=== PATIENT | male | born 1995 | race Hispanic/Latino ===

== ENCOUNTER 2019-03-22 11:22 | Day surgery (SDC) | payer OTHER ==
[~2019-03-22] VITALS: Ht 162.6 cm; Wt 65.2 kg
[~2019-03-22 11:22] MED LIST: CelecoXIB 400 MG CAP PO ONE; GABAPENTIN 100 MG CAP PO ONE; LR 1,000 ML IV ONE; PERCOCET 5MG/325MG TAB PO ONE
[2019-03-22] MEDS ORDERED: dexameTHASONE 4 MG/ML 1ML VIAL (J1100) As Ordered ONE (12:19)
[2019-03-22] MEDS ORDERED: ONDANSETRON 4MG/2ML VIAL (J2405) As Ordered ONE (12:19)
[2019-03-22] MEDS ORDERED: LIDOCAINE 2% INJ 100 MG/5 ML SDV (FOR ANES.) As Ordered ONE (12:19)
[2019-03-22] MEDS ORDERED: ROCURONIUM BROMIDE 50 MG/5 ML VIAL As Ordered ONE (12:19)
[2019-03-22] MEDS ORDERED: PROPOFOL 200 MG/20 ML VIAL As Ordered ONE (12:19)
[2019-03-22] MEDS ORDERED: fentaNYL 250 MCG/5 ML INJECTION (J3010) As Ordered ONE (12:20)
[2019-03-22] MEDS ORDERED: MIDAZOLAM INJ 2 MG/2 ML VIAL (J2250) As Ordered ONE (12:20)
[2019-03-22] MEDS ORDERED: BUPIVACAINE HCL 0.25% 30 ML VIAL As Ordered ONE (15:13)
[2019-03-22] MEDS ORDERED: TRANEXAMIC ACID 100 MG/ML 10ML VIAL As Ordered ONE (15:13)
[2019-03-22] MEDS ORDERED: THROMBIN SOLN 20,000 UNITS KIT As Ordered ONE (15:13)
[2019-03-22] MEDS ORDERED: BACITRACIN PWD 50,000 UNITS VIAL As Ordered ONE (15:14)
[2019-03-22] MEDS ORDERED: BUPIVACAINE LIPOSOME/PF 1.3% 20ML VIAL (13.3MG/ML)(EXPAREL)(C9290 PER1MG) As Ordered ONE (15:14)
[2019-03-22] MEDS ORDERED: EPINEPHrine INJ 1 MG/ML 1ML AMP As Ordered ONE (15:14)
[2019-03-22] MEDS ORDERED: BUPIVACAINE/EPIN 0.5% 30 ML VIAL As Ordered ONE (15:14)
[2019-03-22] MEDS ORDERED: ACETAMINOPHEN 1000MG 100ML IV BTL (OFIRMEV) (J0131 PER 10MG) As Ordered ONE (16:57)
[2019-03-22] MEDS ORDERED: PERCOCET 5MG/325MG TAB PO PRN ×2 (18:15→18:30)
[2019-03-22] MEDS ORDERED: D5W/LR 1,000 ML IV SCH (18:15)
[2019-03-22] MEDS ORDERED: LR 1,000 ML IV SCH (18:30)
[2019-03-22] MEDS ORDERED: fentaNYL 100 MCG/2 ML INJECTION (J3010) IV PRN (18:30)
[2019-03-22] MEDS ORDERED: ACETAMINOPHEN TAB 650MG DOSE (2X325MG) PO PRN (18:30)
[2019-03-22] MEDS ORDERED: ONDANSETRON 4MG/2ML VIAL (J2405) IV PRN (18:30)
[2019-03-22] MEDS ORDERED: CYCLOBENZAPRINE 10 MG TAB PO PRN (18:45)
[2019-03-22] MEDS ORDERED: PROMETHAZINE INJ 25 MG/ML VIAL (J2550) IV PRN (18:45)
[2019-03-22] MEDS ORDERED: HYDROMORPHONE HCL 0.5 MG/ 0.5 ML SYRINGE (J1170 PER 1) IV PRN (18:45)
[2019-03-22 19:30] VITALS: BP 121/73
--- NOTE | 2019-03-22 20:07 | REP ---
Clinical: Preoperative planning. Technique: Portable intraoperative cross-table view of the lumbar spine. Findings: Probe identified via posterior approach at the L5-S1 interspinous level. Electronically Signed by Elpidio Awan MD 03/22/2019 07:59 P
[2019-03-22] MEDS ORDERED: GABAPENTIN 300 MG CAP PO ONE (21:00)
[2019-03-22 22:00] VITALS: BP 123/72
[2019-03-23 06:00] VITALS: BP 120/64
[2019-03-23] MEDS ORDERED: PERC5TAB12 PO (06:01)
[2019-03-23] MEDS ORDERED: CELE1CAP4 PO (06:01)
[2019-03-23 08:00] VITALS: BP 81/50
[2019-03-23 08:05] VITALS: BP 110/70
--- NOTE | 2019-03-23 08:49 | RO ---
DATE OF PROCEDURE: 03/22/2019 PREOPERATIVE DIAGNOSIS: Left lower extremity radiculopathy due to large disk herniation left L5-S1. POSTOPERATIVE DIAGNOSIS: Left lower extremity radiculopathy due to large disk herniation left L5-S1. PROCEDURE PERFORMED: Includes microdiskectomy L5-S1 left. SURGEON: Dr. Ancelmo Bridges SEISMOGRAPH RECORDER: ELDER Rice ANESTHESIA: General. SPECIMENS: Include disk material. ESTIMATED BLOOD LOSS: Less than 40, replaced with crystalloid. COMPLICATIONS: No complications. DRAINS: No drains INDICATIONS: Discomfort radiating down the left lower extremity for a period of about a year. MRI evidence of a large left-sided disk herniation at L5-S1 impinging on the traversing S1 nerve root. The patient elects to proceed with surgery. Consent reviewed in detail, including a skyla discussion of the pathology involved, procedure proposed, alternatives, including doing nothing and risks including not limited to pain, failure, infection, bleeding, blood loss, nerve injury and other issues. The patient agreed to proceed with surgery. DESCRIPTION OF PROCEDURE: Identified in the holding area. Site and side verified, brought to the operating room. Once anesthesia was administered, he was positioned in the prone position on the Louie frame for exposure of the lumbar spine. Axillary rolls were utilized. Knees were slightly flexed. Next, once I and the instrument checker were comfortable with the patient's positioning, he was then sterilely prepped and draped in the usual fashion. Next, incision was based on palpation of the iliac crest and landmarks and spinous process. The incision was outlined with a marking pen. It was two fingerbreadths long, infiltrated with 0.25% Marcaine with epinephrine, made with a 10 blade knife by myself, developed through subcuticular tissues to the posterior lumbar fascia, which was sharply divided from the spinous process of 5. Dissection was continued with Bovie cautery down the L5 lamina, exposing the L5 lamina. I drilled a divot in the free margin of the left L5 lamina, placed a Melendez-Jarod in the divot and obtained a cross-table lateral x-ray verifying our level and position. Once this was accomplished, we irrigated, brought in the microscope. I removed some posterior lamina using Leksell, and then the microscope was utilized to facilitate use of the high-speed bur. Mr. Cervantesharis looked through oculars on the right-sided scope, I through oculars on the left side of the scope. Mr. Weiss assisted using suction and retraction devices to help for safe exposure. The high-speed bur was utilized to implement the left laminotomy at L5 extending superiorly to the bare area of 5, inferiorly to the bare area of S1. Curved curettes were utilized to elevate ligamentum flavum, which was then removed with Kerrisons, exposing the thecal sac, S1 traversing nerve root was identified and appreciated be somewhat elevated. A Melendez-Jarod was then used to gently sweep the nerve root medially held with the level of suction retractor by Mr. Weiss. This exposed the disk material at L5-S1, which seemed to be partly extruded / subligamentous. A rent was created in the posterior longitudinal ligament by myself using 11 blade knife and then I removed friable disk material using Gallego pituitary. We obtained some additional disk material using a Melendez Jarod probe and suction device. I probed the anterior to the PLL and around the PLL to ensure there was no additional friable disk material to be removed. Bipolar cautery was utilized for hemostasis, as well as thrombin Gelfoam. All thrombin Gelfoam removed at the conclusion of case. Irrigation was accomplished. Next, wound was anesthetized with local anesthetic, Exparel, approximately 20 mL Exparel/Marcaine mixture. No active bleeding was appreciated. No CSF leak was appreciated. Posterior lumbar fascia was reapproximated with interrupted stitch, deep dermis with interrupted stitch. Pernio dressing was applied. The patient was log-rolled to the hospital bed, moved to recovery room in good condition. For further details, please refer to the medical record.
[2019-03-23] MEDS ORDERED: METAMUCIL (PSYLLIUM) PACKET PO SCH (09:00)
[2019-03-23] MEDS ORDERED: CelecoXIB 400 MG CAP PO ONE (09:00)
[2019-03-23] MEDS: PERCOCET 5MG/325MG TAB PO PRN ×2 (09:09→15:51)
[2019-03-23 14:00] VITALS: BP 138/72
== END 2019-03-23 19:20 | disposition home or self-care (01) ==
LOC: M SDC 11:22 → M MS5PR 19:19 → M SDC 03-23 19:20
PROVIDERS: ATTEND Orthopaedic Surgery
DX: M51.16 Intervertebral disc disorders with radiculopathy, lumbar region (principal)
CPT/HCPCS: 36415; 63030; 72100; 86850; 86900; 86901; 88304; 96374; C9290; J0131; J0690; J1100; J2250; J2405; J3010